=== PATIENT | female | born 1995 | race Asian ===

== ENCOUNTER 2019-07-24 14:03 | Emergency (ER) | payer OTHER, SELFPAY ==
[~2019-07-24] VITALS: Ht 152.4 cm; Wt 73.9 kg
[2019-07-24 14:09] VITALS: Ht 152.4 cm; Wt 73.9 kg
[2019-07-24 16:17] LABS: BASOPHIL % 0.4 % (0-2); PLATELET COUNT 155 x10^3mcL (130-400); RED CELL DISTRIBUTION WIDTH 12.7 % (11.5-14.5)
[2019-07-24 16:40] LABS: CALCIUM 8.9 mg/dL (8.5-10.1); CARBON DIOXIDE 28.9 mmol/L (21-32); CHLORIDE SERUM 100 mmol/L (98-107); CREATININE SERUM 0.8 mg/dL (0.6-1.0); GFR1 > 60 mL/min; GLUCOSE SERUM 93 mg/dL (74-106); POTASSIUM SERUM 3.7 mmol/L (3.5-5.1); SODIUM SERUM 136 mmol/L (136-145)
[2019-07-24 16:42] LABS: ALBUMIN 3.8 g/dL (3.4-5.0)
[2019-07-24 17:10] VITALS: BP 126/85
[2019-07-24 17:24] LABS: ALKALINE PHOSPHATASE 65 U/L (46-116); ALT/SGPT 148 U/L (14-59); AST/SGOT 71 U/L (15-37); BILIRUBIN TOTAL 0.29 mg/dL (0.20-1.00)
[2019-07-24 17:25] LABS: TOTAL PROTEIN, SERUM 8.5 g/dL (6.4-8.2)
== END 2019-07-24 17:10 | disposition home or self-care (01) ==
LOC: ED 14:03
PROVIDERS: Emergency Medicine
DX: U07.1 COVID-19 (principal); N39.0 Urinary tract infection, site not specified; Z88.1 Allergy status to other antibiotic agents
CPT/HCPCS: 36415; Q0092; U0003-CS